=== PATIENT | male | born 1990 | race Caucasian/White ===

== ENCOUNTER 2016-12-16 23:58 | Emergency (ER) | payer BC ==
[2016-12-17 00:31] LABS: BASO # 0.1 10_X3_uL (0.0-0.1); BASO % 0.7 % (0.2-1.2); EOS # 0.3 10_X3_uL (0.0-0.5); EOS % 3.7 % (0.8-7.0); GRAN # 3.3 10_X3_uL (1.8-5.4); GRAN % 40.7 % (34.0-67.9); HEMATOCRIT 42.3 % (40-51); HEMOGLOBIN 15.1 g/dL (13.7-17.5); LYMPH # 3.6 10_X3_uL (1.3-3.6); LYMPH % 43.5 % (21.8-53.1); MEAN CORPUSCULAR HEMOGLOBIN 32.6 pg (27.0-33.0); MEAN CORPUSCULAR HGB CONC 35.7 g/dL (32.0-36.0); MEAN CORPUSCULAR VOLUME 91.4 fL (79-92); MEAN PLATELET VOLUME 9.4 fl (7.5-11.5); MONO # 0.9 10_X3_uL (0.3-0.8); MONO % 11.4 % (5.3-12.2); PLATELET COUNT 275 x10_3/uL (163-337); RED BLOOD COUNT 4.63 x10_6/uL (4.6-6.1); WHITE BLOOD COUNT 8.2 x10_3/uL (4.2-9.1)
[2016-12-17 00:57] LABS: ALBUMIN 4.2 gm/dL (3.4-5.0); ALKALINE PHOSPHATASE 61 U/L (50-136); ALT/SGPT 75 U/L (7.53-40.17); AST/SGOT 35 U/L (6.66-35.34); BLOOD UREA NITROGEN 10 mg/dL (7-18); CALCIUM 9.3 mg/dL (8.7-10.7); CARBON DIOXIDE 23 mmol/L (21-32); CREATINE KINASE 202 U/L (35-232); CREATININE 0.8 mg/dL (0.6-1.3); GLUCOSE,RANDOM 81 mg/dL (70-99); POTASSIUM 3.7 mmol/L (3.5-5.1); SODIUM 140 mmol/L (136-145); TOTAL PROTEIN 7.5 gm/dL (6.4-8.2)
== END 2016-12-17 01:26 | disposition home or self-care (01) ==
LOC: ER 23:58
PROVIDERS: Emergency Medicine
DX: M25.512 Pain in left shoulder (principal); R07.89 Other chest pain; I10 Essential (primary) hypertension; Z88.2 Allergy status to sulfonamides
CPT/HCPCS: 36415; 71010; 80053; 82550; 82553; 85025; 93005; 96374; 99070; 99284; 99285-25